=== PATIENT | male | born 1980 | race Two or more races ===

== ENCOUNTER 2022-01-08 18:52 | Inpatient (IN) | payer MEDICAID ==
[~2022-01-08] VITALS: Ht 149.9 cm; Wt 58.5 kg
--- NOTE | 2022-01-08 19:10 | NUR ---
Bibra89,was at a neighborhood lawn crawling, appears intoxicated. rajni av fistula noted. 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 Pt Alert and responsive. Tolerating R/A well with no SOB. Safety Measures in place.
--- NOTE | 2022-01-08 19:21 | NUR ---
HOMEMAKING REHABILITATION CONSULTANT AT PT'S BEDSIDE
--- NOTE | 2022-01-08 19:31 | NUR ---
POC BG 89
--- NOTE | 2022-01-08 19:52 | NUR ---
PT TAKEN TO CT VIA [facility]
--- NOTE | 2022-01-08 19:55 | NUR ---
PT RETURNED FROM CT
--- NOTE | 2022-01-08 20:51 | NUR ---
INTRANET DEVELOPER AT PT'S BEDSIDE
[2022-01-08 21:25] LABS: BASOPHILS # (AUTO) 0.1 K/uL (0.0-0.2); BASOPHILS % (AUTO) 1.5 % (0.0-2.0); EOSINOPHILS % (AUTO) 17.2 % (0.0-6.0); HEMATOCRIT 30 % (39-51); HEMOGLOBIN 9.7 g/dL (13.5-17.5); LYMPHOCYTES # (AUTO) 2.5 K/uL (0.8-4.8); MEAN CORPUSCULAR HGB CONC 33 g/dl (31.0-36.0); MEAN CORPUSCULAR VOLUME 100 fL (80-96); MONOCYTES # (AUTO) 0.7 K/uL (0.1-1.30); MONOCYTES % (AUTO) 13.7 % (2.0-12.0); NEUTROPHILS # (AUTO) 1.2 K/uL (1.8-8.9); NEUTROPHILS % (AUTO) 21.6 % (43.0-81.0); PLATELET COUNT (AUTO) 114 K/uL (150-450); RED BLOOD CELL COUNT(AUTO) 2.95 MIL/uL (4.5-6.0); WHITE BLOOD COUNT (AUTO) 5.4 K/uL (4.3-11.0)
[2022-01-08 21:29] LABS: CALCIUM, SERUM 7.6 mg/dL (8.5-10.1); CREATININE 0.7 mg/dL (0.6-1.3)
--- NOTE | 2022-01-08 21:31 | NUR ---
CRITICAL LAB: POTASSIUM 2.8; DR. LAW ARANGO AWARE
[2022-01-08 21:32] LABS: POTASSIUM 2.8 mmol/L (3.5-5.1)
--- NOTE | 2022-01-08 21:50 | NUR ---
COVID SWAB SENT TO LAB
[2022-01-08] MEDS ORDERED: Z GUARD REMEDY 4 OZ OINT TP PRN (22:00)
[2022-01-08] MEDS ORDERED: MAGNESIUM HYDROXIDE 30 ML UDC PO PRN (22:00)
[2022-01-08] MEDS ORDERED: ONDANSETRON HCL/PF 4 MG/2 ML VIAL IVP PRN (22:00)
[2022-01-08] MEDS ORDERED: ZOLPIDEM TARTRATE 5 MG TABLET PO PRN (22:00)
[2022-01-08] MEDS ORDERED: MAG HYDROX/AL HYDROX/SIMETH 30 ML UDC PO PRN (22:00)
[2022-01-08] MEDS ORDERED: LORAZEPAM INJ 2 MG/ML VIAL IV PRN (22:00)
--- NOTE | 2022-01-08 22:15 | NUR ---
CJ #20G S/L; GOOD BLOOD RETURN; PATENT AND INTACT.
[2022-01-08] MEDS ORDERED: Magnesium 1GM/D5W 100ML PREMIX 100 ML IV SCH (22:30)
--- NOTE | 2022-01-08 23:22 | NUR ---
REPORT GIVEN TO COLLIN ON THIRD FLOOR
[2022-01-08 23:47] VITALS: BP 106/55
--- NOTE | 2022-01-08 23:55 | NUR ---
PT WAS TRANSERRED TO THIRD FLOOR IN STABLE CONDITION UNDER ACLS PROTOCOL
--- NOTE | 2022-01-08 23:56 | NUR ---
PT TRANSPORTED TO 322-2 ON CARDIAC PER ACLS
[2022-01-09 01:00] VITALS: BP 106/55
[2022-01-09] MEDS: POTASSIUM CL. PREMIX PERIPHER. 50 ML IV SCH ×6 (01:14→09:24)
--- NOTE | 2022-01-09 01:16 | NUR ---
RN NOTE PT A/O X2-3 PT ABLE TO MAKE NEEDS KNOWN PT IS CONFUSED SPELLS OF ALCOHOL. PT NOTED WITH IV ACCESS SON THE R UPPER ARM #20G RUNNING NS @100 ML/HR TOLERATING WELL. PT UNABLE TO PROVIDE ANY MEDICAL HISTORY KEEP IGNORING MY QUESTIONS AND KEEPS SCREAMING THAT HE WANTS FOOD AND ORANGE JUICE.PT WAS ORIENTED TO UNIT AND ROOM ALL DUE MEDS ADMINISTERED AT THIS TIME AND TOLERATED WELL. SNACKS PROVIDED. CALL LIGITH WITHIN REACH. BED ALARM ON TELE MONITOR ON READING SR 80S ALL SAFETY PRECAUTIONS MAINTAINED AT ALL TIMES HOB ELEVATED FOR ASPIRATION PRECAUTIONS TABLE WITHIN REACH. BED IN LOW LOCKED POSITION.
[2022-01-09 04:00] VITALS: BP 107/63
[2022-01-09 06:37] LABS: BASOPHILS # (AUTO) 0.1 K/uL (0.0-0.2); BASOPHILS % (AUTO) 3.2 % (0.0-2.0); HEMATOCRIT 31 % (39-51); HEMOGLOBIN 10.1 g/dL (13.5-17.5); LYMPHOCYTES # (AUTO) 1.5 K/uL (0.8-4.8); LYMPHOCYTES % (AUTO) 35.2 % (20.0-44.0); MEAN CORPUSCULAR HGB CONC 32 g/dl (31.0-36.0); MEAN CORPUSCULAR VOLUME 101 fL (80-96); MONOCYTES # (AUTO) 0.7 K/uL (0.1-1.30); MONOCYTES % (AUTO) 17.1 % (2.0-12.0); NEUTROPHILS # (AUTO) 1.1 K/uL (1.8-8.9); NEUTROPHILS % (AUTO) 25.5 % (43.0-81.0); PLATELET COUNT (AUTO) 77 K/uL (150-450); RED BLOOD CELL COUNT(AUTO) 3.11 MIL/uL (4.5-6.0); WHITE BLOOD COUNT (AUTO) 4.2 K/uL (4.3-11.0)
--- NOTE | 2022-01-09 06:46 | NUR ---
RN CLOSING NOTE PT A/O X2-3 PT ABLE TO MAKE NEEDS KNOWN PT IS CONFUSED PT NOTED WITH IV ACCESS ON THE R UPPER ARM #20G RUNNING NS @100 ML/HR TOLERATING WELL. PT UNABLE TO PROVIDE ANY MEDICAL HISTORY ALL DUE MEDS ADMINISTERED AT THIS TIME AND TOLERATED WELL. SNACKS PROVIDED. CALL LIGHT WITHIN REACH. BED ALARM ON TELE MONITOR ON READING SR 80S ALL SAFETY PRECAUTIONS MAINTAINED AT ALL TIMES HOB ELEVATED FOR ASPIRATION PRECAUTIONS TABLE WITHIN REACH. BED IN LOW LOCKED POSITION.
--- NOTE | 2022-01-09 07:55 | NUR ---
RN OPENING NOTE RECEIVED PATIENT IN BED, ALERT AND ORIENTED TO SELF. ABLE TO MAKE NEEDS KNOWN. AFEBRILE AND NOT ON ANY FORM OF ACUTE DISTRESS. ON TELE MONITORING, SR-85. NOTED WITH INFILTRATED IV LINE ON R ANTECUBITAL, IMMEDIATELY DISCONTINUED AND WARM COMPRESS APPLIED ON THE AFFECTED AREA. SAFETY MEASURES IN PLACE. KEPT BED IN LOWEST AND LOCK POSITION. CALL LIGHT WITHIN EASY REACH.
--- NOTE | 2022-01-09 07:59 | NUR ---
RN NOTE- NO TREMORS NOTED OR W/D SYMPTOMS AT PRESENT. CONFUSED, DIRECTABLE
[2022-01-09 08:01] LABS: CALCIUM, SERUM 7.3 mg/dL (8.5-10.1); CREATININE 0.6 mg/dL (0.6-1.3); PHOSPHORUS 3.1 mg/dL (2.5-4.9)
[2022-01-09 08:38] LABS: POTASSIUM 2.7 mmol/L (3.5-5.1)
[2022-01-09 08:45] VITALS: BP 94/58
--- NOTE | 2022-01-09 09:08 | NUR ---
RN NOTE- PT IV SITE CJ INFILTRATED. IVF STOPPED, IV REMOVED. WARM COMPRESS APPLIED. IV 22G STARTED TO LT HAND BY CENTRAL OFFICE EQUIPMENT ENGINEER PT IS HARD STICK. PT FOR KCL IV SUPPLEM. AWAITING ORDERS. IF IV NO LONGER VIABLE, HOUSE SUP INSTRUCTED RN TO OBTAIN ML.
[2022-01-09] MEDS: PANTOPRAZOLE 40 MG TABLET.DR PO SCH (09:09)
[2022-01-09] MEDS: FOLIC ACID 1 MG TABLET PO SCH (09:09)
[2022-01-09] MEDS: THIAMINE HCL 100 MG TABLET PO SCH (09:09)
--- NOTE | 2022-01-09 09:30 | NUR ---
FLOATING OPERATOR NOTE MIDLINE ORDERED.
[2022-01-09] MEDS: CHLORDIAZEPOXIDE HCL 25 MG CAPSULE PO SCH ×3 (10:23→16:44)
[2022-01-09 10:43] LABS: EOSINOPHILS % (MANUAL) 24 % (0-4); LYMPHOCYTES % (MANUAL) 30 % (16-48); MONOCYTES % (MANUAL) 15 % (0-11.0); NEUTROPHILS % (MANUAL) 31 (42-76)
[2022-01-09] MEDS ORDERED: LORAZEPAM 1 MG TABLET PO PRN (11:00)
[2022-01-09] MEDS: POTASSIUM CHLORIDE 10 MEQ TABLET.SA PO SCH ×3 (11:12→15:23)
[2022-01-09 11:58] VITALS: BP 131/98
[2022-01-09] MEDS ORDERED: LACTULOSE 10 G/15 ML UDC (PYXIS) PO PRN (12:30)
[2022-01-09] MEDS: IV NS 0.9% 1,000 ML IV PRN (13:00)
[2022-01-09] MEDS ORDERED: POTASSIUM CHLORIDE 10 MEQ TABLET.SA PO SCH ×2 (14:00→16:00)
[2022-01-09 16:42] VITALS: BP 109/68
--- NOTE | 2022-01-09 18:37 | NUR ---
VP RESPIRATORY CLOSING NOTE PATIENT IN BED, WITH HOB ELEVATED. ALERT AND ORIENTED X2. ABLE TO MAKE NEEDS KNOWN. AFEBRILE AND NOT ON ANY FORM OF ACUTE DISTRESS. NO COUGH OR CONGESTION NOTED. STILL NOTED WITH HYPOKALEMIA-DR. CRAWLEY ORDERED FOR REPLACEMENT. RECHECKED K+ LEVEL AND WENT UP FROM 2.7 TO 3.7 MMOl/L, MD NOTIFIED. ON IV HYDRATION OF NS AT 100CC/HR, INFUSING WELL. MEDICATED ORDERED. SAFETY MEASURES IN PLACED. KEPT BED IN LOCKED AND IN LOW POSITION TO REDUCE INJURY. ADVISED TO USE THE CALL LIGHT WHEN IN NEED OF ASSISTANCE. ALL NURSING NEEDS ATTENDED.
[2022-01-09 20:00] VITALS: BP 131/56
[2022-01-10] VITALS: BP 124/58
[2022-01-10] MEDS: IV NS 0.9% 1,000 ML IV PRN ×2 (00:33→11:45)
[2022-01-10 04:00] VITALS: BP 125/70
--- NOTE | 2022-01-10 06:24 | NUR ---
END OF SHIFT REPORT Patient is Alert [place] x1-2 Follow simple commands. Stable on RA. Sinus rhythm in the Tele monitor HR 82. Left hand IV line intact, IVF infusing. Patient slept most of the shift, stood up at bedside to void. On PT services. Denies abdomen pain, no N/V. Given Lactulose, no BM throughout shift. Social consult for homelessness. Fall/skin precaution maintained. Will endorse to oncoming RN.
--- NOTE | 2022-01-10 07:44 | NUR ---
RATE SETTER OPENING NOTE RECEIVED PATIENT IN BED, AWAKE, ALERT AND ORIENTED. AFEBRILE AND NOT ON ANY FORM OF ACUTE DISTRESS. BREATHING EVEN AND NON LABORED. NO C/O PAIN OR DISCOMFORT. LUNGS CLEAR ON AUSCULTATION. BOWEL SOUNDS PRESENT ON ALL QUADRANTS. WITH IV ACCESS ON L HAND, 20G WITH NS RUNNING AT 100ML/HR. SAFETY MEASURES IN PLACE. KEPT BED IN LOCKED AND IN LOW POSITION. SIDE RAILS UP. ADVISED TO USE THE CALL LIGHT WHEN IN NEED OF ASSISTANCE.
[2022-01-10] MEDS: THIAMINE HCL 100 MG TABLET PO SCH (08:08)
[2022-01-10] MEDS: CHLORDIAZEPOXIDE HCL 25 MG CAPSULE PO SCH ×3 (08:09→16:54)
[2022-01-10] MEDS: FOLIC ACID 1 MG TABLET PO SCH (08:09)
[2022-01-10] MEDS: PANTOPRAZOLE 40 MG TABLET.DR PO SCH (08:09)
--- NOTE | 2022-01-10 08:20 | NUR ---
WOUND CARE CONSULT: PT PRESENTS AMBULATORY AND CONTINENT WITH AREA OF PEELING SKIN TO LEFT HEEL, NONTENDER, NO DRAINAGE OR ERYTHEMA (PRESENT ON ADMISSION). WILL SEE PRN.
[2022-01-10 09:22] LABS: BASOPHILS % (AUTO) 1.1 % (0.0-2.0); EOSINOPHILS % (AUTO) 18.8 % (0.0-6.0); HEMATOCRIT 34 % (39-51); HEMOGLOBIN 10.9 g/dL (13.5-17.5); LYMPHOCYTES # (AUTO) 1.3 K/uL (0.8-4.8); LYMPHOCYTES % (AUTO) 30.7 % (20.0-44.0); MEAN CORPUSCULAR HGB CONC 32 g/dl (31.0-36.0); MEAN CORPUSCULAR VOLUME 102 fL (80-96); MONOCYTES # (AUTO) 0.6 K/uL (0.1-1.30); MONOCYTES % (AUTO) 14.4 % (2.0-12.0); NEUTROPHILS # (AUTO) 1.5 K/uL (1.8-8.9); PLATELET COUNT (AUTO) 70 K/uL (150-450); RED BLOOD CELL COUNT(AUTO) 3.32 MIL/uL (4.5-6.0); WHITE BLOOD COUNT (AUTO) 4.2 K/uL (4.3-11.0)
[2022-01-10 10:28] LABS: ALBUMIN 2.1 g/dL (3.4-5.0); BILIRUBIN,TOTAL 3.4 mg/dL (0.2-1.0); CALCIUM, SERUM 7.6 mg/dL (8.5-10.1); CREATININE 0.8 mg/dL (0.6-1.3); MAGNESIUM 1.4 mg/dL (1.8-2.4); PHOSPHORUS 2.3 mg/dL (2.5-4.9); POTASSIUM 3.8 mmol/L (3.5-5.1); THYROID STIMULATING HORMONE 1.792 uIU/mL (0.358-3.74)
[2022-01-10] MEDS: Magnesium 1GM/D5W 100ML PREMIX 100 ML IV SCH ×3 (12:50→15:00)
--- NOTE | 2022-01-10 13:15 | NUR ---
Review Trainer Consult SW received a consult request for homelessness. Pt. is 41 y.o. male who was admitted for alcohol intoxication. CHEVY met with pt. at bedside. Pt. appears unkempt and is alert and oriented x2 and was cooperative throughout assessment. Pt. made normal eye contact, had a depressed mood, and had congruent affect. Pt. appeared to be confused throughout assessment and his short-term memory appeared to be impaired. During assessment, pt. confirmed personal information and persons of contact of his mom (Kandy Valdez tel: [phone]). Pt. stated he was living on the [address] since early December but could not provide information re his previous residence. Per pt. report he is not ambulatory and is not independent with his ADLs. Pt. appeared confused when SW assessed his emotional status. Pt. reported he is not receiving financial assistance. 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 Pt. reported no hx of psychiatric dx and was unable to report if pt. a has hx of visual or auditory hallucinations. CHEVY assessed for suicidal and homicidal ideation in which pt. denied plan, means, or intent. DC plan: When asked about pt.s plans after being discharged, pt. reported he was going back to the streets in [place]. CHEVY offered pt. intermediate placement in which pt. was not agreeable. CHEVY offered pt. drug rehab in which pt. also declined. CHEVY provided pt. with homeless resources and mental health resources in which pt. accepted them. CHEVY provided pt. with TAP card and directions to go to [facility] ([address] [place] [address]). Pt. signed the homeless waiver and was placed in his chart. Counseling--Outpatient [facility] [address] [facility] [place] [address] (Specializes in in-depth psychotherapy for emotional distress: anxiety, depression, interpersonal conflicts, life transitions, childhood abuse) [facility] [place] [address] [place] [address] (Assist with solving problem marital difficulties, separation & divorce, aging parents, & grief, chronic & terminal illness) [facility] [address] [place] [address] (Deal with loss & grief, anxiety, marital difficulties) [facility] [address] [place], [place] [address] (Provide in-home mental services to people who are incapable of leaving their homes) [facility] [address] [place] [address] [facility] [address] [place] [address] PSYCHIATRIC OUTPATIENT SERVICES [facility] Partial Hospitalization and Intensive Outpatient Program (Managed Care and [place] Only)[address] [facility]. [facility] [phone] [facility] Partial Hospitalization and Outpatient [id number] [facility] [place], [place] [phone] [facility] [place] [id number] [facility] [place], [place] [phone] [facility] Partial Hospitalization and Outpatient [id number] [place], [phone] Substance Abuse resources provided included: [facility] Substance Abuse Self-Helpline ([facility] RE[facility]) ; [facility] [address] Counts Include [address] [facility]. [place] [id number] ; [facility] [address] [facility] [address] ; [facility] [address] [address] ; [facility] [place] [address] [facility] [address] ; [facility] [address] [facility] [address] ; [facility] [address] [facility] [phone] ; [facility] Substance Abuse Helpline(SAS)[facility] ; [facility] ; [facility] [place]; [facility] [place]; [facility]; [facility] Abe Thompsonmisael; [facility] [place]; [facility] [place]; [facility] [place]; [facility], [facility]. Stephanie Irwin; Alcoholics Anonymous -[facility]; I[facility]cm[facility]-Xfya[facility]a ; Marijuana Anonymous -[facility]; Narcotics Anonymous www.na.org;
[2022-01-10] MEDS ORDERED: K PHOS NEUTRAL 250 MG TABLET PO ONE (16:00)
--- NOTE | 2022-01-10 18:40 | NUR ---
RN CLOSING NOTE PATIENT IN BED, AWAKE, ALERT AND ORIENTED X1-2. ABLE TO MAKE NEEDS KNOWN. AFEBRILE AND NOT IN ANY FORM OF ACUTE DISTRESS. BREATHING EVEN AND NON LABORED. NO C/O PAIN OR DISCOMFORT THROUGHOUT THE SHIFT. MG LEVEL SLIGHTLY LOW-REPLACED ORDERED. DUE MEDS GIVEN. WITH IV ACCESS ON L HAND 20G. OFFERED AND ENCOURAGED FLUIDS TOLERATED. HAD BM X2 DURING THE SHIFT. SAFETY MEASURES IN PLACE. KEPT BED IN LOCKED AND IN LOW POSITION TO REDUCE INJURY. SIDE RAILS UP. CALL LIGHT WITHIN EASY REACH. ALL NURSING NEEDS ATTENDED.
--- NOTE | 2022-01-10 19:40 | NUR ---
GRAPHITE PAN DRIER TENDER OPENING NOTE RECEIVED PATIENT IN BED, SLEEPING. PT ALERT AND ORIENTED X 1-2. AFEBRILE, AND NO ACUTE DISTRESS SEEN. BREATHING EVEN AND NON LABORED. NO C/O PAIN OR DISCOMFORT. IV ACCESS TO LEFT HAND, 20G WITH NS RUNNING AT 100ML/HR. SAFETY MEASURES IN PLACE. BED IN LOCKED AND IN LOW POSITION. SIDE RAILS UP. CALL LIGHT WITHIN REACH. WILL CONTINUE TO MONITOR PT.
[2022-01-10 20:00] VITALS: BP 116/71
--- NOTE | 2022-01-11 07:12 | NUR ---
AGRONOMIST CLOSING NOTE LEFT PT SLEEPING IN BED. PT A/O X 2-3, ABLE TO MAKE NEEDS KNOWN, WITH CONFUSION. PT HAS IV ACCESS TO LEFT HAND #20G, INTACT, AND PATENT. CALL LIGHT WITHIN REACH. BED ALARM ON TELE MONITOR ON READING SR. ALL SAFETY PRECAUTIONS MAINTAINED AT ALL TIMES HOB ELEVATED FOR ASPIRATION PRECAUTIONS, TABLE WITHIN REACH. BED IN LOW LOCKED POSITION. WILL ENDORSE PT TO AM SHIFT NURSE FOR DAVIE.
--- NOTE | 2022-01-11 07:30 | NUR ---
RN Receiving Report. Patient AOx4, able to express his concerns. Patient in room with no signs of distress. Introduced my self to patient and discuss plan of care, patient verbalizes agreement. All safety precautions taken, call light and table within reach and bed at lowest position. Will continue to monitor throughout shift and provide care as needed.
[2022-01-11 07:37] LABS: BASOPHILS % (AUTO) 0.8 % (0.0-2.0); EOSINOPHILS % (AUTO) 16.6 % (0.0-6.0); HEMATOCRIT 34 % (39-51); HEMOGLOBIN 10.9 g/dL (13.5-17.5); LYMPHOCYTES # (AUTO) 1.4 K/uL (0.8-4.8); LYMPHOCYTES % (AUTO) 28.1 % (20.0-44.0); MEAN CORPUSCULAR HGB CONC 32 g/dl (31.0-36.0); MEAN CORPUSCULAR VOLUME 102 fL (80-96); MONOCYTES % (AUTO) 19.8 % (2.0-12.0); NEUTROPHILS # (AUTO) 1.7 K/uL (1.8-8.9); NEUTROPHILS % (AUTO) 34.7 % (43.0-81.0); PLATELET COUNT (AUTO) 71 K/uL (150-450); RED BLOOD CELL COUNT(AUTO) 3.33 MIL/uL (4.5-6.0)
[2022-01-11] MEDS: PANTOPRAZOLE 40 MG TABLET.DR PO SCH (07:46)
[2022-01-11 08:00] VITALS: BP 123/69
[2022-01-11 08:01] LABS: ALBUMIN 1.8 g/dL (3.4-5.0); BILIRUBIN,TOTAL 3.7 mg/dL (0.2-1.0); CALCIUM, SERUM 7.8 mg/dL (8.5-10.1); CREATININE 0.6 mg/dL (0.6-1.3); MAGNESIUM 1.9 mg/dL (1.8-2.4); PHOSPHORUS 3.3 mg/dL (2.5-4.9); POTASSIUM 4.1 mmol/L (3.5-5.1)
[2022-01-11] MEDS: CHLORDIAZEPOXIDE HCL 25 MG CAPSULE PO SCH ×2 (08:44→16:33)
[2022-01-11] MEDS: THIAMINE HCL 100 MG TABLET PO SCH (08:44)
[2022-01-11] MEDS: FOLIC ACID 1 MG TABLET PO SCH (08:45)
[2022-01-11 12:00] VITALS: BP 109/73
[2022-01-11 12:17] LABS: NEUTROPHILS % (MANUAL) 59 (42-76)
[2022-01-11 12:18] LABS: EOSINOPHILS % (MANUAL) 6 % (0-4); LYMPHOCYTES % (MANUAL) 29 % (16-48); MONOCYTES % (MANUAL) 6 % (0-11.0)
--- NOTE | 2022-01-11 13:15 | NUR ---
Abnormal test Laboratory called with elevated Ammonia results, physician made aware. Orders in.
[2022-01-11] MEDS: LACTULOSE 10 G/15 ML UDC (PYXIS) PO SCH ×2 (14:20→16:32)
[2022-01-11 16:00] VITALS: BP 110/69
--- NOTE | 2022-01-11 18:43 | NUR ---
RN Closing Report. Patient AOx4 able to express his concerns. Patient shared that he does not talk to his siblings or his kids. Patient remained safe throughout shift. All safety precautions taken, call light and table within reach. Bed at lowest position. No signs of distress, care was provided as needed.
--- NOTE | 2022-01-11 19:25 | NUR ---
SURTASS ANALYST OPENING NOTE RECEIVED PATIENT IN BED, AWAKE. PT ALERT AND ORIENTED X 3-4. AFEBRILE, AND NO ACUTE DISTRESS SEEN. BREATHING EVEN AND NON LABORED. NO C/O PAIN OR DISCOMFORT. IV ACCESS TO LEFT HAND, 20G WITH NS RUNNING AT 100ML/HR. SAFETY MEASURES IN PLACE. BED IN LOCKED AND IN LOW POSITION. SIDE RAILS UP. CALL LIGHT WITHIN REACH. WILL CONTINUE TO MONITOR PT.
[2022-01-11 20:00] VITALS: BP 124/71
[2022-01-12] VITALS: BP 137/83
[2022-01-12] MEDS: LACTULOSE 10 G/15 ML UDC (PYXIS) PO SCH ×4 (01:38→20:05)
[2022-01-12 04:00] VITALS: BP 108/53
[2022-01-12 06:46] LABS: BASOPHILS # (AUTO) 0.1 K/uL (0.0-0.2); BASOPHILS % (AUTO) 1.2 % (0.0-2.0); EOSINOPHILS % (AUTO) 17.5 % (0.0-6.0); HEMATOCRIT 34 % (39-51); LYMPHOCYTES # (AUTO) 1.6 K/uL (0.8-4.8); LYMPHOCYTES % (AUTO) 31.9 % (20.0-44.0); MEAN CORPUSCULAR HGB CONC 33 g/dl (31.0-36.0); MEAN CORPUSCULAR VOLUME 100 fL (80-96); MONOCYTES # (AUTO) 0.8 K/uL (0.1-1.30); MONOCYTES % (AUTO) 16.6 % (2.0-12.0); NEUTROPHILS # (AUTO) 1.6 K/uL (1.8-8.9); NEUTROPHILS % (AUTO) 32.8 % (43.0-81.0); PLATELET COUNT (AUTO) 83 K/uL (150-450); RED BLOOD CELL COUNT(AUTO) 3.37 MIL/uL (4.5-6.0)
[2022-01-12 07:02] LABS: CALCIUM, SERUM 8.6 mg/dL (8.5-10.1); CREATININE 0.6 mg/dL (0.6-1.3); MAGNESIUM 1.9 mg/dL (1.8-2.4); POTASSIUM 4.2 mmol/L (3.5-5.1)
--- NOTE | 2022-01-12 07:05 | NUR ---
MS RN CLOSING NOTE LEFT PT SLEEPING IN BED. PT A/O X 3-4, ABLE TO MAKE NEEDS KNOWN. PT HAS IV ACCESS TO LEFT HAND #20G, INTACT, AND PATENT. CALL LIGHT WITHIN REACH. BED ALARM ON. PT NO LONGER ON TELE MONITOR, MS PT NOW. ALL SAFETY PRECAUTIONS MAINTAINED AT ALL TIMES HOB ELEVATED FOR ASPIRATION PRECAUTIONS, TABLE WITHIN REACH. BED IN LOW LOCKED POSITION. WILL ENDORSE PT TO AM SHIFT NURSE FOR DAVIE.
[2022-01-12] MEDS: FOLIC ACID 1 MG TABLET PO SCH (08:12)
[2022-01-12] MEDS: PANTOPRAZOLE 40 MG TABLET.DR PO SCH (08:12)
[2022-01-12] MEDS: THIAMINE HCL 100 MG TABLET PO SCH (08:12)
[2022-01-12] MEDS: CHLORDIAZEPOXIDE HCL 25 MG CAPSULE PO SCH ×2 (08:12→16:09)
[2022-01-12 08:41] VITALS: BP 126/86
[2022-01-12 11:02] LABS: EOSINOPHILS % (MANUAL) 18 % (0-4); LYMPHOCYTES % (MANUAL) 34 % (16-48); MONOCYTES % (MANUAL) 8 % (0-11.0); NEUTROPHILS % (MANUAL) 40 (42-76)
[2022-01-12 16:52] VITALS: BP 126/76
--- NOTE | 2022-01-12 18:03 | NUR ---
SHIFT SUMMARY PATIENT IS A/O X3, MACEDONIAN SPEAKING. ON RA SATURATING WELL. AMBULATORY WITH SBA. TOLERATING DIET WELL. IV ACCESS ON L HAND #20G SL. NO S/SX OF ETOH WITHDRAWAL. SAFETY MEASURES MAINTAINED. BED IN LOWEST POSITION, BRAKES LOCKED. SIDE RAILS UP X2. CALL LIGHT WITHIN REACH. WILL ENDORSE CONTINUITY OF CARE TO ONCOMING SHIFT.
--- NOTE | 2022-01-12 19:43 | NUR ---
MS RN OPENING NOTE Patient in bed, awake. A/O x 2-3, able to make needs known. On room air, breathing evenly and unlabored. No SOB or s/s of distress noted. IV access on Left hand #20 SL, intact and patent. Patient denies any pain or discomfort at this time. Safety precautions in place: bed in low, locked position; siderails up x 2; call light within reach. Will continue to monitor.
[2022-01-13] MEDS: LACTULOSE 10 G/15 ML UDC (PYXIS) PO SCH ×2 (01:06→08:27)
--- NOTE | 2022-01-13 06:53 | NUR ---
MS RN CLOSING NOTE Patient in bed, asleep. A/O x 2, able to make needs known. Stable on room air, breathing evenly and unlabored. No SOB or s/s of distress noted. IV access on Left hand #20 SL, intact and patent. Due meds given. All needs attended to. Photos of wounds taken and placed in chart. Safety precautions in place: bed in low, locked position; siderails up x 2; call light within reach. Will continue to monitor.
--- NOTE | 2022-01-13 07:01 | NUR ---
MS RN OPENING NOTES RECEIVED PATIENT AWAKE IN BED, A/Ox2, CHINESE SPEAKING, ABLE TO MAKE NEEDS KNOWN. ON ROOM AIR NO S/S OF RESPIRATORY DISTRESS. IV ACCESS L HAND #20G. INTACT AND PATENT. AMBULATORY, USES URINAL. SKIN ISSUES: BUTTOCK REDNESS, L HEEL REDNESS. SAFETY MEASURES IN PLACE: BED LOCKED AND IN LOWEST POSITION, SIDE RAILS UP x2, CALL LIGHT WITHIN REACH. WILL CONTINUE TO MONITOR.
[2022-01-13 08:00] VITALS: BP 132/92
[2022-01-13] MEDS: THIAMINE HCL 100 MG TABLET PO SCH (08:27)
[2022-01-13] MEDS: FOLIC ACID 1 MG TABLET PO SCH (08:27)
[2022-01-13] MEDS: CHLORDIAZEPOXIDE HCL 25 MG CAPSULE PO SCH (08:27)
[2022-01-13] MEDS: PANTOPRAZOLE 40 MG TABLET.DR PO SCH (08:27)
[2022-01-13] MEDS ORDERED: ACETAMINOPHEN 325 MG TABLET PO PRN (08:30)
[2022-01-13 11:52] LABS: BASOPHILS # (AUTO) 0.1 K/uL (0.0-0.2); BASOPHILS % (AUTO) 2.8 % (0.0-2.0); EOSINOPHILS % (AUTO) 17.2 % (0.0-6.0); HEMATOCRIT 34 % (39-51); HEMOGLOBIN 10.9 g/dL (13.5-17.5); LYMPHOCYTES # (AUTO) 1.4 K/uL (0.8-4.8); LYMPHOCYTES % (AUTO) 28.5 % (20.0-44.0); MEAN CORPUSCULAR HGB CONC 33 g/dl (31.0-36.0); MEAN CORPUSCULAR VOLUME 101 fL (80-96); MONOCYTES # (AUTO) 0.8 K/uL (0.1-1.30); MONOCYTES % (AUTO) 17.3 % (2.0-12.0); NEUTROPHILS # (AUTO) 1.7 K/uL (1.8-8.9); NEUTROPHILS % (AUTO) 34.2 % (43.0-81.0); PLATELET COUNT (AUTO) 90 K/uL (150-450); RED BLOOD CELL COUNT(AUTO) 3.32 MIL/uL (4.5-6.0); WHITE BLOOD COUNT (AUTO) 4.8 K/uL (4.3-11.0)
[2022-01-13 12:05] LABS: ALBUMIN 2.3 g/dL (3.4-5.0); BILIRUBIN,TOTAL 2.7 mg/dL (0.2-1.0); CALCIUM, SERUM 8.7 mg/dL (8.5-10.1); CREATININE 0.8 mg/dL (0.6-1.3); MAGNESIUM 1.8 mg/dL (1.8-2.4); POTASSIUM 4.4 mmol/L (3.5-5.1); TOTAL PROTEIN, SERUM 6.7 g/dL (6.4-8.2)
[2022-01-13 12:35] LABS: EOSINOPHILS % (MANUAL) 16 % (0-4); LYMPHOCYTES % (MANUAL) 27 % (16-48); MONOCYTES % (MANUAL) 18 % (0-11.0); NEUTROPHILS % (MANUAL) 39 (42-76)
--- NOTE | 2022-01-13 14:00 | NUR ---
STUDIO TECHNICIAN VIDEO OPERATOR NOTES PATIENT DISCHARGE HOME. STABLE A/Ox2-3. MALAWIAN SPEAKING ABLE TO MAKE NEEDS KNOWN. STABLE ON ROOM AIR. NO S/S OF RESPIRATORY DISTRESS. ALL HEALTH TEACHINGS AND DISCHARGE INSTRUCTIONS GIVEN AND EXPLAINED TO PATIENT. PATIENT VERBALIZED UNDERSTANDING. IV ACCESS REMOVED, PRESSURE DRESSING APPLIED. ID BAND REMOVED. ALL FORMS SIGNED AND FILED INTO CHART. PATIENT BELONGINGS ALL PLACED IN BAGS AND GIVEN TO PATIENT. PATIENT LEFT UNIT @1350, ACCOMPANIED BY GWENDOLYN FISHER, WITH BUS PASS. CHARGE NURSE AND MD AWARE OF DISCHARGE.
== END 2022-01-13 15:39 | disposition home or self-care (01) ==
LOC: ER 19:16 → TELE 23:00 → MED 01-11 18:13
PROVIDERS: ADMIT Nurse Practitioner Acute Care; ATTEND Nurse Practitioner Family
DX: K76.82 Hepatic encephalopathy (principal); G92.9 Unspecified toxic encephalopathy; E83.51 Hypocalcemia; D69.59 Other secondary thrombocytopenia; K74.60 Unspecified cirrhosis of liver; F10.129 Alcohol abuse with intoxication, unspecified; E87.6 Hypokalemia; Y90.8 Blood alcohol level of 240 mg/100 ml or more; K42.9 Umbilical hernia without obstruction or gangrene; K43.9 Ventral hernia without obstruction or gangrene; K44.9 Diaphragmatic hernia without obstruction or gangrene; Z59.00 Homelessness unspecified; F19.10 Other psychoactive substance abuse, uncomplicated; F41.9 Anxiety disorder, unspecified; D53.9 Nutritional anemia, unspecified; I86.8 Varicose veins of other specified sites; Z87.448 Personal history of other diseases of urinary system; F10.139 Alcohol abuse with withdrawal, unspecified
CPT/HCPCS: 36415; 70450-TC; 80048-TC; 80053-TC; 82140-TC; 82607-TC; 82728-TC; 82962-TC; 83540-TC; 83690-TC; 83735-TC; 84100-TC; 84132-TC; 84439-TC; 84443-TC; 85025-TC; 97530-TC; C9803; G0378; G0480; J3475; J3480; J7030